=== PATIENT | female | born 1955 | race Caucasian/White ===

== ENCOUNTER 2024-01-13 03:44 | Inpatient (IN) | payer MEDICARE, OTHER, SELFPAY ==
[2024-01-12 16:31] VITALS: BP 151/87
[2024-01-12 17:21] LABS: COVID-19 Antigen Negative (Negative)
[2024-01-12 18:29] VITALS: BP 137/65
[2024-01-12 20:42] VITALS: BMI 49.3
[2024-01-12 20:49] VITALS: BP 149/77
[2024-01-12 21:22] LABS: % Basophils 0.5 % (0-2); % Eosinophils 1.4 % (0-6); % Immature Granulocytes 0.3 % (0-0.5); % Lymphocytes 15.7 % (20.5-51.1); % Monocytes 7.2 % (1.7-9.3); % Neutrophils 74.9 % (42.2-75.2); Absolute Basophils 0.1 10^3/uL (0-0.2); Absolute Eosinophils 0.2 10^3/uL (0-0.7); Absolute Immature Granulocytes 0.1 10^3/uL (0-0.05); Absolute Lymphocytes 2.3 10^3/uL (1.2-3.4); Absolute Monocytes 1.1 10^3/uL (0.1-0.6); Hemoglobin 12.6 g/dL (12.0-16.0); Mean Corp Hgb Conc. 34.1 g/dL (33.0-37.0); Mean Corpuscular Hgb 30.6 pg (27.0-31.0); Mean Corpuscular Volume 89.8 fL (81.0-99.0); Nucleated Red Blood Cells % 0 %; Platelet Count 342 10^3/uL (130-400); Red Blood Cell Count 4.12 10^6/uL (4.20-5.40); Red Cell Dist. Width 12.4 % (11.5-14.5); White Blood Cell Count 14.7 10^3/uL (4.8-10.8)
[2024-01-12 21:35] LABS: ALT (SGPT) 77 U/L (0-35); AST (SGOT) 63 U/L (14-36); Alkaline Phosphatase 123 U/L (38-126); Blood Urea Nitrogen 20 mg/dl (7-17); Calcium 9.7 mg/dl (8.4-10.2); Carbon Dioxide 28 mmol/L (22-30); Chloride 99 mmol/L (98-107); Estimated Creatinine Clearance 85 ml/min; Glucose 106 mg/dl (70-99); Potassium 4.1 mmol/L (3.5-5.1); Sodium 140 mmol/L (135-145); Total Bilirubin 0.7 mg/dl (0.2-1.3); eGFR > 60.00
[2024-01-12 21:36] LABS: Lipase 48 U/L (23-300)
[2024-01-12 21:49] LABS: Urine Albumin Trace (Neg - Trace); Urine Bilirubin 1+ (Negative); Urine Character Slightly Cloudy (Clear); Urine Color Amber; Urine Glucose Negative (Negative); Urine Ketone Trace (Negative); Urine Leukocyte 1+ (Negative); Urine Nitrite Positive (Negative); Urine Occult Blood 1+ (Negative); Urine Specific Gravity 1.015 (<1.030); Urine Urobilinogen Negative (Neg - 1+)
[2024-01-12 22:03] LABS: Urine Bacteria Many (Negative); Urine Red Blood Cell 0-2 /HPF (0-2); Urine White Cell 26-30 /HPF (0-5)
--- NOTE | 2024-01-12 22:31 | ED.GENMED ---
History of Present Illness
<Avtar Higginbotham, DO - Last Filed: 01/13/24 02:28>
General
Chief Complaint: Abdominal Pain
Time Seen by Provider: 01/12/24 22:08
<Nova Campa MD, Resident - Last Filed: 01/12/24 22:51>
General
Source: patient
Exam Limitations: none
Nursing documentation reviewed up to this point in time: agreed with
History of Present Illness
History of Present Illness:
Patient is a 68-year-old female with past medical history of GERD, hypertension, hypercholesterolemia, breast current (diagnosed 2017). Mentions she had an abdominal pain on Friday that lasted for an hour and went away by itself. Was pain-free
until Friday when she started to have a dull upper abdominal pain that has been constant since. The pain does not radiate, gets worse with bending and better with lying down. She reports a fever of 101.4 yesterday for which she treated with
Tylenol. Does not think pain is similar to GERD symptoms. Patient is not a alcohol drinker. Also mentions loss of appetite.
Denies nausea/vomiting. Denies urinary symptoms. Denies shortness of breath. Does not report change in bowel movements.
Past History
<Nova Campa MD, Resident - Last Filed: 01/12/24 22:51>
Past History
ED Past Medical History: Hypercholesterolemia and Other (Migraines, anxiety); Negative CAD, IDDM or NIDDM
ED Past Surgical History: None
Social History
Tobacco: Non-smoker
Alcohol: Occasional
Drug: None
Personal:
Living: with family
Family History
Family History: Hypertension and CAD
Review of Systems
<Nova Campa MD, Resident - Last Filed: 01/12/24 22:51>
Review of Systems
Allergies reviewed?: Yes
All Other Systems: ROS reviewed and negative except as documented in HPI and ROS
Phy Exam
<Nova Campa MD, Resident - Last Filed: 01/12/24 22:51>
General Physical Exam
General Presentation: mild distress
General Habitus: obese
General Mental: alert and usual mental status
General Hydration: other (Slightly dehydrated)
Cardiovascular Exam
Cardiovascular Exam: regular rate/rhythm, no edema, no gallop and no JVD
Pulmonary Exam
Pulmonary Exam: lungs clear, no respiratory distress, no crackles and no cough
Gastrointestinal Exam
Gastrointestinal Exam: normal bowel sounds, soft, no cva tenderness, tender (Mild epigastric tenderness) and other (No rebound, no guarding)
Neurological Exam
Neurological Exam: alert and oriented x3
Musculoskeletal Exam
Musculoskeletal Exam: full ROM and no edema
Skin Exam
Skin Exam: other (No jaundice)
Course
<Avtar Higginbotham, DO - Last Filed: 01/13/24 02:28>
Orders/Labs/Results
Orders:
Orders
01/12/24 16:35
Electrocardiogram (*1) Urgent
Reason for Study: Abdominal Pain
EKG- Treatment ONCE
01/12/24 16:46
COVID-19 Antigen Urgent
Source: Nasal Swab
Influenza A+B Rapid Molecular Urgent
GEOFF Source: Nasal Swab
Specimen Description:
01/12/24 20:55
Straight cath- Treatment ONCE
01/12/24 20:57
Urinalysis Reflex To Culture Urgent
Date Specimen was Collected: 01/12/24
Time Specimen was Collected: 20:55
Urine Microscopic Reflex Cult Urgent
Urine Culture Urgent
GEOFF Source: U
Specimen Description:
Date Specimen was Collected: 01/12/24
Time Specimen was Collected: 20:55
01/12/24 21:13
Complete Blood Count/With Diff Urgent
Comprehensive Metabolic Panel Urgent
Lipase Urgent
01/12/24 22:31
US Abdomen Complete/Upper Urgent
Comment:
Reason For Exam: upper abdominal pain, fever, mildly elevated LFT
01/13/24 00:07
Acetaminophen [Tylenol] 650 mg PO NOW STA
01/13/24 00:21
0.9% Sodium Chloride 1000 ml [Nss] 1,000 ml IV BOLUS
Piperacillin/Tazo 4.5 Gram [Zosyn] 4.5 gram in 100 ml IV NOW
01/13/24 Breakfast
NPO
Allow oral meds: No
Allow clear liquids: No
NPO with Ice Chips: Yes
Abnormal Lab Results
01/12/24 01/12/24
20:57 21:13
WBC 14.7 H 10^3/uL
(4.8-10.8)
RBC 4.12 L 10^6/uL
(4.20-5.40)
Abs Immat Gran (auto) 0.1 H 10^3/uL
(0-0.05)
Absolute Neuts (auto) 11.0 H 10^3/uL
(1.4-6.5)
Absolute Monos (auto) 1.1 H 10^3/uL
(0.1-0.6)
Lymphocytes % 15.7 L %
(20.5-51.1)
BUN 20 H mg/dl
(7-17)
Glucose 106 H mg/dl
(70-99)
AST 63 H U/L
(14-36)
ALT 77 H U/L
(0-35)
Urine Ketones Trace A
(Negative)
Ur Occult Blood Reflex 1+ A
(Negative)
Urine Nitrite (Reflex) Positive A
(Negative)
Urine Bilirubin 1+ A
(Negative)
Leukocyte Esterase Rfl 1+ A
(Negative)
Urine WBC (Reflex) 26-30 A /HPF
(0-5)
Urine Bacteria (Reflex) Many A
(Negative)
01/12/24 21:13
01/12/24 21:13
Vital Signs
Initial and Last Documented VS:
Initial Vital Signs
Temp Pulse Resp BP Pulse Ox
100.3 F 112 18 151/87 100
01/12/24 16:31 01/12/24 16:31 01/12/24 16:31 01/12/24 16:31 01/12/24 16:31
Last Documented Vital Signs
Temp Pulse Resp BP Pulse Ox
99.1 F 89 18 137/65 96
01/12/24 18:29 01/12/24 18:29 01/12/24 16:31 01/12/24 18:29 01/12/24 20:50
<Nova Campa MD, Resident - Last Filed: 01/12/24 22:51>
Orders/Labs/Results
Orders:
Orders
01/12/24 16:35
Electrocardiogram (*1) Urgent
Reason for Study: Abdominal Pain
EKG- Treatment ONCE
01/12/24 16:46
COVID-19 Antigen Urgent
Source: Nasal Swab
Influenza A+B Rapid Molecular Urgent
GEOFF Source: Nasal Swab
Specimen Description:
01/12/24 20:55
Straight cath- Treatment ONCE
01/12/24 20:57
Urinalysis Reflex To Culture Urgent
Date Specimen was Collected: 01/12/24
Time Specimen was Collected: 20:55
Urine Microscopic Reflex Cult Urgent
Urine Culture Urgent
GEOFF Source: U
Specimen Description:
Date Specimen was Collected: 01/12/24
Time Specimen was Collected: 20:55
01/12/24 21:13
Complete Blood Count/With Diff Urgent
Comprehensive Metabolic Panel Urgent
Lipase Urgent
01/12/24 22:31
US Abdomen Complete/Upper Urgent
Comment:
Reason For Exam: upper abdominal pain, fever, mildly elevated LFT
01/13/24 00:07
Acetaminophen [Tylenol] 650 mg PO NOW STA
01/13/24 00:21
0.9% Sodium Chloride 1000 ml [Nss] 1,000 ml IV BOLUS
Piperacillin/Tazo 4.5 Gram [Zosyn] 4.5 gram in 100 ml IV NOW
01/13/24 Breakfast
NPO
Allow oral meds: No
Allow clear liquids: No
NPO with Ice Chips: Yes
Abnormal Lab Results
01/12/24 01/12/24
20:57 21:13
WBC 14.7 H 10^3/uL
(4.8-10.8)
RBC 4.12 L 10^6/uL
(4.20-5.40)
Abs Immat Gran (auto) 0.1 H 10^3/uL
(0-0.05)
Absolute Neuts (auto) 11.0 H 10^3/uL
(1.4-6.5)
Absolute Monos (auto) 1.1 H 10^3/uL
(0.1-0.6)
Lymphocytes % 15.7 L %
(20.5-51.1)
BUN 20 H mg/dl
(7-17)
Glucose 106 H mg/dl
(70-99)
AST 63 H U/L
(14-36)
ALT 77 H U/L
(0-35)
Urine Ketones Trace A
(Negative)
Ur Occult Blood Reflex 1+ A
(Negative)
Urine Nitrite (Reflex) Positive A
(Negative)
Urine Bilirubin 1+ A
(Negative)
Leukocyte Esterase Rfl 1+ A
(Negative)
Urine WBC (Reflex) 26-30 A /HPF
(0-5)
Urine Bacteria (Reflex) Many A
(Negative)
01/12/24 21:13
01/12/24 21:13
Vital Signs
Initial and Last Documented VS:
Initial Vital Signs
Temp Pulse Resp BP Pulse Ox
100.3 F 112 18 151/87 100
01/12/24 16:31 01/12/24 16:31 01/12/24 16:31 01/12/24 16:31 01/12/24 16:31
Last Documented Vital Signs
Temp Pulse Resp BP Pulse Ox
99.1 F 89 18 137/65 96
01/12/24 18:29 01/12/24 18:29 01/12/24 16:31 01/12/24 18:29 01/12/24 20:50
<Avtar Higginbotham, DO - Last Filed: 01/13/24 02:28>
MDM/Problems Addressed
MDM/Problems Addressed:
68-year-old female with acute cholecystitis and UTI. Discussed with Dr. Lloyd, general surgeon, who will take the OR in a.m. Admit to hospitalist. IV Zosyn given.
Chronic conditions affecting care: HTN
<Nova Campa MD, Resident - Last Filed: 01/12/24 22:51>
MDM/Problems Addressed
Differential Diagnosis Includes:
Acute cholecystitis, Cholelithiasis, UTI, Acute cholangitis (less likely)
<Avtar Higginbotham DO - Last Filed: 01/13/24 02:28>
*Radiology
Radiology exam reviewed: radiology read reviewed (Ultrasound abdomen shows acute cholecystitis)
*Pulse Oximetry
Patient hypoxic: no
*EKG
Interpreted by ED Provider?: Yes
EKG Intrepretation Date: 01/13/24
EKG Intrepretation Time: 16:38
Interpretation: abnormal
Comparison EKG: no changes
Heart Rate: 107
Rate: tachycardiac
Rhythm: sinus tachycardia
[place]: normal axis
Interval: normal interval
QRS Pattern: normal QRS
Ischemia: no ischemia
*Geology Instructor Interpretation
Rate: tachycardiac
Interpretation: abnormal
Heart Rate: 105
Rhythm: sinus tachycardia
*Critical Care Note
Total Time (30-74mins, 75-104mins- exclusive of procedures): Not Applicable
<Nova Campa MD, Resident - Last Filed: 01/12/24 22:51>
*Critical Care Note
Total Time (30-74mins, 75-104mins- exclusive of procedures): 30
<Avtar Higginbotham, - Last Filed: 01/13/24 02:28>
Patient Management
Social determinants of health affecting care: Living situation
Discussion with other providers: Hospitalist and Business Intelligence Consultant (General surgeon)
Escalation/DeEscalation of care consider admission/obs:
admit indicated
ED Attending Note
<Avtar Higginbotham, - Last Filed: 01/13/24 02:28>
ED Attending Note
Patient seen and examined by attending physician: Yes
I performed a history and physical exam of patient and discussed management with resident, I reviewed resident's note and agree with documented findings and plan of care.: Yes
ED Attending Note:
I reviewed and agree with history and treatment plan by Nova Rondon. My exam revealed 61-year-old female with epigastric tenderness without rebound. Patient initially had temperature 100.3 in ED. Will evaluate with ultrasound.
<Nova Campa MD, Resident - Last Filed: 01/12/24 22:51>
-
Portions of this chart may have been created with voice recognition software.� Occasional wrong word or��sound alike� substitutions may have occurred due to the inherent limitations of voice recognition software.
Discharge Plan
Departure
Patient Disposition: Admit
Date of Disposition: 01/13/24
Time of Disposition: 00:23
Admit to: Med/Surg
Presentation/result/management discussed w/ accepting MD/DO: Hospitalist
Patient with high blood pressure during this ER visit?: Yes
Condition: Fair
Discharge Problem:
Acute cholecystitis, Urinary tract infection
Prescriptions:
No Action
cyanocobalamin (vitamin B-12) 1,000 MCG tablet
1,000 mcg PO DAILY
uwvqlkihfi-jlvajnxjirjka-opyx 1 TAB tablet
1 tab PO Q4HPRN PRN (Reason: GARCIA)
lorazepam 0.5 MG tablet
0.5 mg PO Q4HPRN PRN (Reason: anxiety)
Calcium
1 tab PO DAILY
Pravastatin
40 mg PO DAILY
Vitamin D
1 tab PO DAILY
lisinopril-hydrochlorothiazide 1 EACH tablet
1 ea PO DAILY
famotidine 20 MG tablet
20 mg PO DAILY
letrozole 2.5 MG tablet
2.5 mg PO DAILY
sertraline 50 MG tablet
50 mg PO DAILY
Referrals:
Vicenta Fermin MD [Family Provider] -
Interventions
Interventions:
*Risk Screen - Suicide Last Done: 01/12/24 16:31
*General Assessment Last Done: 01/12/24 16:31
*Neglect/Abuse Screening Last Done: 01/12/24 16:31
ED- Fall Risk Assessment Last Done: 01/12/24 20:50
*ED COVID-19 Vaccine History Last Done: 01/12/24 16:31
AR-Ixuswk-Rebwxpbsix Assessment Last Done: 01/12/24 20:50
Discharge Date and Time
Print Language: ECUADOREAN
[2024-01-13] VITALS (19 sets, daily range): BP systolic 120–161; BP diastolic 49–81
[2024-01-13] MEDS: TYLENOL 650 MG PO (00:11)
[2024-01-13] MEDS: ZOSYN 100 IV (01:21)
[2024-01-13] MEDS: NSS 1000 IV (01:22)
--- NOTE | 2024-01-13 04:13 | HPS.HSE ---
Family Physician
-
Family Physician: Vicenta Fermin
Chief Complaint
-
Epigastric abdominal pain. Fever
History of Present Illness
This is a 68-year-old female with past medical history significant for breast cancer status postlumpectomy and lymph node dissection several years ago, hyperlipidemia, hypertension who presents to the emergency department with abdominal pain that
started around 5 days ago.
Patient reports gradual onset of abdominal pain that started in the lower quadrant and brought gross to her epigastric region. No radiation. Pain worse with movement or trying to eat. She was able to tolerate the pain for a few days. However
today she started having a fever and worsening pain so she decided come to the emergency department.
In the ED he was febrile to 100.3, blood pressure 128/71 and oxygen saturation 90% on room air. She had leukocytosis to 14,000 with baseline hemoglobin and platelet counts were normal. Chemistries were unremarkable. LFTs are within normal limits.
Lipase was normal. Bilirubin was normal.
Abdominal ultrasound shows a gallstone impacted in the neck of the gallbladder with gallbladder distention, gallbladder wall thickening and edema with positive Vargas sign. There is a dilation of the common bile duct to 9 mm, no stones.
Medical History
Past Medical History
Past Medical History: Reports HTN and Hypercholesterolemia
Additional Past Medical History:
Breast cancer status postlumpectomy
Past Surgical History: Reports Tonsilectomy
Additional Past Surgical History:
Left lumpectomy and lymph node dissection
Social History
Tobacco: Non-smoker
Alcohol: Occasional
Drug: None
Personal: Single
Living: Alone
Employment: Retired
Family History
Family History: Not pertinent
Allergies / Home Medications
Allergies reflects when Allergies were last updated in [facility].
Home Medications with original date entered in [facility]
Allergy/Medication List:
Allergies
Allergy/AdvReac Type Severity Reaction Status Date / Time
diphenhydramine Allergy gets hyper Verified 01/12/24 16:35
[From Benadryl]
Home Medications
Calcium 1 tab PO DAILY 08/16/11
Pravastatin 40 mg PO DAILY 08/16/11
Vitamin D 1 tab PO DAILY 08/16/11
tfmbmizkhl-kgdtcnmgluaii-qlqjojih 50 mg-325 mg-40 mg tablet 1 tab PO Q4HPRN PRN GARCIA 08/16/11
cyanocobalamin (vitamin B-12) 1,000 mcg tablet 1,000 mcg PO DAILY 08/16/11
lorazepam 0.5 mg tablet 0.5 mg PO Q4HPRN PRN anxiety 08/16/11
famotidine 20 mg tablet 20 mg PO DAILY 07/16/21
letrozole 2.5 mg tablet 2.5 mg PO DAILY 07/16/21
lisinopril 20 mg-hydrochlorothiazide 12.5 mg tablet 1 ea PO DAILY 07/16/21
sertraline 50 mg tablet 50 mg PO DAILY 07/16/21
Review of Systems
-
Constitutional: Reports Fever
EENT: Reports No Symptoms
Respiratory: Reports No Symptoms
Cardiac: Reports No Symptoms
Abdomen/GI: Reports Abdominal Pain
: Reports No Symptoms
Musculoskeletal: Reports No Symptoms
Skin: Reports No Symptoms
Neurological: Reports No Symptoms
Endocrine: Reports No Symptoms
Hematologic/Lymphatic: Reports No Symptoms
Psych: Reports No Symptoms
Physical Exam
Vital Signs
Vital Signs
Temp Pulse Resp BP Pulse Ox
99.1 F 83 14 128/71 99
01/12/24 18:29 01/12/24 23:39 01/12/24 23:39 01/13/24 01:00 01/12/24 23:39
Physical Exam
General: Well Developed and Comfortable
HEENT: NormoCephalic, Anicteric, Moist mucous membranes and Atraumatic
Respiratory: Clear
Cardiac: S1/S2 and Regular Rhythm
Breast: Deferred by me
GI: Soft, Non Distended and Tender
Genito-urinary: Deferred by me
Musculoskeletal: No Clubbing, No Cyanosis and No Edema
Skin: Warm
Neuro: AO x 3
Hematologic/Lymphatic: No Lymphadenopathy
Psych: Calm
Laboratory Results
-
Laboratory Results
Total Bilirubin 0.7 mg/dl (0.2-1.3) 01/12/24 21:13
AST 63 U/L (14-36) H 01/12/24 21:13
ALT 77 U/L (0-35) H 01/12/24 21:13
Alkaline Phosphatase 123 U/L (38-126) 01/12/24 21:13
Lipase 48 U/L (23-300) 01/12/24 21:13
Data Reviewed
-
Ultrasound: Report Reviewed by me
Lab Data: Labs Reviewed by me
Old Records: Reviewed
Impression/Plan
-
IMPRESSION:
68 y.o female wit HTN, HLD, anxiety, here with acute cholecystisis. There is some GB dilation but no stones and normal lfts and lipase. There is no evidence of cholelithiasi.
PLAN:
1. Acute cholecysitis w/o cholangitis.
- admit to med/surg
- zosyn
- NPO, maintenance fluids
- surgery consulted and aware for OR in am
- holding am antihypertensives
- continue sertraline and prn lorazepam
- other meds to be stared after surgery
U/A is positive with squamos cells suggestive of contamination. No acute urinary symptoms described. On zosyn for now. No indication for UTI treatment specifically
DVT PPX - lovenox sq
Code Status - Full
[2024-01-13 06:39] LABS: Hematocrit 36.3 % (37.0-47.0); Hemoglobin 12.1 g/dL (12.0-16.0); Mean Corp Hgb Conc. 33.3 g/dL (33.0-37.0); Mean Corpuscular Hgb 30.6 pg (27.0-31.0); Mean Corpuscular Volume 91.7 fL (81.0-99.0); Mean Platelet Volume 10.3 fL (7.4-10.4); Platelet Count 336 10^3/uL (130-400); Red Blood Cell Count 3.96 10^6/uL (4.20-5.40); Red Cell Dist. Width 12.4 % (11.5-14.5)
[2024-01-13 06:58] LABS: INR 1.09; PT 13.9 Sec (11.4-14.6)
[2024-01-13 07:01] LABS: Blood Urea Nitrogen 17 mg/dl (7-17); Calcium 9.4 mg/dl (8.4-10.2); Carbon Dioxide 27 mmol/L (22-30); Chloride 100 mmol/L (98-107); Estimated Creatinine Clearance 85 ml/min; Glucose 105 mg/dl (70-99); Potassium 3.6 mmol/L (3.5-5.1); Sodium 142 mmol/L (135-145); eGFR > 60.00
[2024-01-13] MEDS: LR 1000 IV (07:06)
--- NOTE | 2024-01-13 07:39 | W.PN.HOSP.TC ---
Today's Communication/Plan
-
NPO, IVF
once toradol for headache, protonix GI prophylaxis
Sugery eval
cont abx
pain control
Assessment / Plan
Assessment / Plan
Physical Exam
General: Well Developed and Comfortable morbidly obese
HEENT: NormoCephalic, Anicteric, Moist mucous membranes and Atraumatic
Respiratory: Clear
Cardiac: S1/S2 and Regular Rhythm
GI: Soft, Non Distended and RUQ Tenderness Vargas Sign Pos
Musculoskeletal: No Clubbing, No Cyanosis and No Edema
Skin: Warm
Neuro: AO x 3
Psych: Calm
68 y.o female wit HTN, HLD, anxiety, here with acute cholecystitis.
PLAN:
Acute cholecysitis
-mild transaminits, no significant bili elevation noted
-Abd US official results pending, preliminary reports suggestive cholecystitis
- zosyn
- NPO, maintenance fluids
- surgery consulted
- holding home antihypertensives given soft pressures
- continue sertraline and prn lorazepam
- other meds to be stared after surgery
Headache
-once Toradol
-Tylenol prn
U/A is positive with squamous cells suggestive of contamination. No acute urinary symptoms described. On zosyn for now. No indication for UTI treatment specifically
DVT PPX - lovenox sq
Gi ppx Protonix
Code Status - Full
discussed with patient and patient's Brother Patrick
I spent a total of 50 minutes with the patient or on the floor. More than 50% of this time involved counseling and coordination of care.
Anticipated Discharge: 24 - 48 hours
Subjective/Interval History
-
Date of Service: January 13, 2024
No acute distress resting comfortably in bed. Reports right upper quadrant abd pain tenderness persists but tolerable. Reports headache
Objective Data
-
Labs:
Laboratory Results
01/12/24 01/13/24 01/13/24
21:13 06:05 07:09
WBC 14.7 H 13.0 H
Hgb 12.6 12.1
Hct 37.0 36.3 L
Plt Count 342 336
PT 13.9
INR 1.09
Sodium 140 142
Potassium 4.1 3.6
Chloride 99 100
Carbon Dioxide 28 27
BUN 20 H 17
Creatinine 0.8 0.8
Glucose 106 H 105 H
Calcium 9.7 9.4
Total Bilirubin 0.7 Pending
AST 63 H Pending
ALT 77 H Pending
Alkaline Phosphatase 123 Pending
Vital Signs:
Vital Signs
Temp Pulse Resp BP Pulse Ox
99.1 F 84 17 123/78 96
01/12/24 18:29 01/13/24 06:00 01/13/24 06:00 01/13/24 05:00 01/13/24 05:45
[2024-01-13] MEDS: ZOSYN 50 IV ×2 (08:06→20:42)
[2024-01-13] MEDS: ZOLOFT PO (08:18)
[2024-01-13 08:30] LABS: ALT (SGPT) 70 U/L (0-35); AST (SGOT) 55 U/L (14-36); Albumin 3.9 g/dl (3.5-5.0); Alkaline Phosphatase 124 U/L (38-126); Direct Bilirubin 0.3 mg/dl (0.0-0.4); Total Bilirubin 0.8 mg/dl (0.2-1.3); Total Protein 6.8 g/dl (6.3-8.2)
[2024-01-13] MEDS: PROTONIX IV 40 MG IV (08:42)
[2024-01-13] MEDS: NSS (PRESERVATIVE FREE) 10 ML IV (08:42)
[2024-01-13] MEDS: DILAUDID 0.5 MG IV ×3 (08:44→21:12)
--- NOTE | 2024-01-13 09:42 | CON.GS ---
Medical History
-
Chief Complaint: RUQ abdominal pain
History of Present Illness:
Patient is a 68 yo M with a PMH of morbid obesity, HTN, HLD, and breast cancer s/p lumpectomy with SLND who presents with approximately 5 days of RUQ abdominal pain. Ms. Piper states that her pain began on as acute onset sharp RUQ
abdominal pain. Her symptoms improved and resolved throughout the day, but then recurred on Friday (01/09). Since that time she has had persistent upper abdominal and RUQ abdominal pain. She continues to have abdominal pain in the ED. No
nausea or vomiting. Associated fevers. She denies any jaundice or pale stools, she does note some darker urine. She reports a prior attack years ago. No family history of cholecystectomy.
Past Medical History
Past Medical History: Cancer (Breast), HTN and Hypercholesterolemia
Past Surgical History: Other (Lumpectomy with SLND)
Social History
Tobacco: Non-Smoker
Alcohol: Occasional
Drug: None
Family History
Family History: Reviewed & Not Pertinent
Allergies / Home Medications
Allergy/AdvReac Type Severity Reaction Status Date / Time
diphenhydramine Allergy gets hyper Verified 01/12/24 16:35
[From Benadryl]
�Medication �Instructions �Recorded �Confirmed �Type
pravastatin 40 mg tablet 40 mg PO DAILY 08/16/11 01/13/24 History
letrozole 2.5 mg tablet 2.5 mg PO DAILY 07/16/21 01/13/24 History
sertraline 50 mg tablet 50 mg PO DAILY 07/16/21 01/13/24 History
vwvnfuq-rwoiwfqmsx-DKJ-caffeine 30 1 cap PO TIDPRN PRN migraines 01/13/24 01/13/24 History
mg-50 mg-325 mg-40 mg capsule
(Ascomp with Codeine)
lisinopril 20 1 tab PO DAILY 01/13/24 01/13/24 History
mg-hydrochlorothiazide 12.5 mg
tablet
Review of Systems
-
A 10 point review of systems was completed, and was negative except as per HPI.
Physical Exam
Vital Signs
Temp Pulse Resp BP Pulse Ox
99.1 F 84 17 123/78 96
01/12/24 18:29 01/13/24 06:00 01/13/24 06:00 01/13/24 05:00 01/13/24 05:45
01/12/24 01/13/24 01/14/24
06:59 06:59 06:59
Actual Weight 122.1 kg
Body Mass Index (BMI) 49.3
Lab Results
01/13/24 06:05
01/13/24 06:05
WBC 13.0 10^3/uL (4.8-10.8) H 01/13/24 06:05
Hgb 12.1 g/dL (12.0-16.0) 01/13/24 06:05
Hct 36.3 % (37.0-47.0) L 01/13/24 06:05
Plt Count 336 10^3/uL (130-400) 01/13/24 06:05
Abs Immat Gran (auto) 0.1 10^3/uL (0-0.05) H 01/12/24 21:13
Neutrophils % 74.9 % (42.2-75.2) 01/12/24 21:13
Physical Exam
General: Well Developed, Well Nourished and No Apparent Distress
HEENT: Normocephalic and Anicteric
Respiratory: Non Labored Respirations
GI: Soft, Tender (RUQ and epigastrium), Obese (Exam limited by obesity) and Other (No diffuse peritonitis)
Musculoskeletal: No Edema
Skin: Warm and Dry
Neuro: Nonfocal/Grossly Intact
Data Reviewed
-
Ultrasound: Image Personally Visualized and interpreted
Labs: Labs Reviewed by me
Assessment / Plan
-
Patient is a 68 yo F p/w acute cholecystitis
Financial history and pathophysiology of biliary and stone disease was discussed. Anatomy was briefly reviewed. Workup thus far including labs and imaging were reviewed. Options for management including medical management alone with antibiotics
versus percutaneous cholecystostomy tube versus cholecystectomy were considered and discussed. The pros and cons of all approaches was discussed. We discussed that she is at slightly increased risk for operative complications given her obesity and
delayed presentation.
Plan for a laparoscopic cholecystectomy with possible cholangiogram. The procedure itself, as well as the risks, benefits, and alternatives was discussed. Specifically, we discussed the risks of bleeding, infection, injury to surrounding
structures (bowel, bile ducts), CBD injury, need for open procedure. Typical postprocedure recovery including 2 weeks no heavy lifting or strenuous activities and the 10 to 20% risk of fluctuation in GI function were discussed. All questions
answered. Consent signed.
-- Laparoscopic cholecystectomy with possible cholangiogram
-- NPO, IVF
-- Antibiotics: Zosyn
-- Pain control: Tylenol and IV Dilaudid as needed
--- NOTE | 2024-01-13 09:52 | W.SUR.PREOP ---
Pre-Operative Surgical Note
-
I have examined this patient prior to the performance of the scheduled procedure.
The patient's condition is unchanged from the time of the current History and
Physical and the patient is able to undergo the scheduled procedure.
[2024-01-13] MEDS: ZOFRAN 4 MG IV (12:50)
--- NOTE | 2024-01-13 16:48 | W.IMMPOSTOP ---
Surgical Immed Post Op Note
-
Primary Surgeon: Sin
Assisting Surgeon: None
Pre-op Diagnosis: Acute cholecystitis
Post-op Diagnosis: Acute cholecystitis
Procedure Performed: Laparoscopic cholecystectomy with IOC
Anesthesia Type: General
Specimen / Cultures:
1. Gallbladder
Estimated Blood Loss: 11 cc
Complications: None
Operative Findings:
1. Acutely inflamed and edematous GB, severe fatty liver disease and intra-hepatic GB
2. Critical view of safety
3. IOC with limited visualization of distal CBD secondary to spine and despite JONATHAN, emptying into duodenum, proximal radicals and cystic duct identified
4. Artery taken with clips and duct with clips and Endoloop
5. 19 Fr Abdiaziz drain into operative field
[2024-01-13] MEDS: ZOSYN IV (17:48)
--- NOTE | 2024-01-13 18:10 | SUR.PHASEI ---
IV in r arm not running, possible infiltrate as area puffy. Yaima Felix paged for IV start. waiting reply. Jose Reyes RN BSN.
[2024-01-13] MEDS: NORMOSOL-R/PLASMALYTE-A 1000 IV (18:41)
[2024-01-13] MEDS: LR IV (20:25)
[2024-01-13] MEDS: LOVENOX 40 MG SC (20:43)
[2024-01-13] MEDS: ZESTRIL 20 MG PO (22:48)
--- NOTE | 2024-01-13 22:50 | PTCARENOTE ---
[facility] a bed on 2L of O2. Pt had 4 lap sites and a ADRI drain in the RLQ putting out serosanguineous drainage. Full head to toe completed. Admission questions completed. Bed locked and in lowest position. Pt oriented
to room and call blevins. Care ongoing.
[2024-01-14] VITALS (8 sets, daily range): BP systolic 117–168; BP diastolic 45–73; PULSE 92
[2024-01-14] MEDS: ZOSYN 50 IV ×4 (01:00→20:06)
--- NOTE | 2024-01-14 04:36 | DOWNTIME ---
There was a [employer] Client Curriculum Writer Downtime on 01/14/2024 from 0100 to 01/14/2024 at 0355. Downtime documentation of patient's care, including medication administrations, has been reconciled in the electronic record per guidelines. Refer to the
patient's paper chart under the miscellaneous tab to see printed paper medication records and downtime forms.
[2024-01-14] MEDS: NORMOSOL-R/PLASMALYTE-A 1000 IV (05:01)
[2024-01-14] MEDS: ROXICODONE 5 MG PO ×2 (05:05→20:37)
[2024-01-14] MEDS: TYLENOL 650 MG PO (05:31)
[2024-01-14] MEDS: LR IV (07:21)
--- NOTE | 2024-01-14 07:25 | W.PN.HOSP.TC ---
Today's Communication/Plan
-
Pain control Diet abx as per surgery
PT/OT appreciated home health, VN case mgmt consult placed
home antihypertensives resumed with holding parameters
Patient here with primary surgical issue, otherwise relatively stable improving.
Per discussion with surgery, will transfer to surgical service and Hospitalist will sign off. Please consult as needed.
Assessment / Plan
Assessment / Plan
Physical Exam
General: Well Developed and Comfortable morbidly obese
HEENT: NormoCephalic, Anicteric, Moist mucous membranes and Atraumatic
Respiratory: Clear
Cardiac: S1/S2 and Regular Rhythm
GI: Soft, Non Distended and RUQ Tenderness Vargas Sign Pos, Drain present
Musculoskeletal: No Clubbing, No Cyanosis and No Edema
Skin: Warm
Neuro: AO x 3
Psych: Calm
68 y.o female Morbid Obesity remote history breast cancer, HTN, HLD, anxiety, here with acute cholecystitis.
PLAN:
Acute cholecysitis s/p cholecystectomy drain placed POD1
-mild transaminits, no significant bili elevation noted
-Abd US appreciated 2.4 cm gallstone GB neck, signs suggestive Acute Cholecystitis, dilation common bile duct 9 mm
- post-operative zosyn as per surgery
- Low Fat diet
- surgery consult appreciated
-pain control
HTN
home antihypertensives initially held d/t to soft pressures
since resumed home lisinopril-HCTz with holding parameters
Anxiety
continue home sertraline and prn lorazepam
Hx Breast Ca
Home Letrozole initially held on admission since resumed
Headache
-agree Fioricet Toradol prn as per surgery
PT/OT appreciated home services
DVT PPX - lovenox sq
Gi ppx Protonix
Code Status - Full
discussed with patient and Surgery
I spent a total of 40 minutes with the patient or on the floor. More than 50% of this time involved counseling and coordination of care.
Anticipated Discharge: Within 24 hours
Subjective/Interval History
-
Date of Service: January 14, 2024
Seen and examined at bedside in no acute distress. Reports headache and pain at incision/drain site.
Objective Data
-
Labs:
Laboratory Results
01/14/24
06:00
WBC Pending
Hgb Pending
Hct Pending
Plt Count Pending
Sodium Pending
Potassium Pending
Chloride Pending
Carbon Dioxide Pending
BUN Pending
Creatinine Pending
Glucose Pending
Calcium Pending
Total Bilirubin Pending
AST Pending
ALT Pending
Alkaline Phosphatase Pending
Vital Signs:
Vital Signs
Temp Pulse Resp BP Pulse Ox
97.5 F 91 18 139/65 94
01/14/24 03:20 01/14/24 03:20 01/14/24 03:20 01/14/24 03:20 01/14/24 03:20
I&O
01/13/24 01/14/24 01/15/24
06:59 06:59 06:59
Intake Total 2397 / 2397
Output Total 30 / 30
Balance 2367 / 2367
[2024-01-14] MEDS: ZOLOFT 50 MG PO (07:51)
[2024-01-14] MEDS: NSS (PRESERVATIVE FREE) 10 ML IV (07:51)
[2024-01-14] MEDS: LOVENOX 40 MG SC (07:51)
[2024-01-14] MEDS: PROTONIX IV 40 MG IV (07:51)
[2024-01-14 08:05] LABS: Hematocrit 34.6 % (37.0-47.0); Hemoglobin 11.6 g/dL (12.0-16.0); Mean Corp Hgb Conc. 33.5 g/dL (33.0-37.0); Mean Corpuscular Hgb 31.3 pg (27.0-31.0); Mean Corpuscular Volume 93.3 fL (81.0-99.0); Mean Platelet Volume 10.1 fL (7.4-10.4); Platelet Count 360 10^3/uL (130-400); Red Blood Cell Count 3.71 10^6/uL (4.20-5.40); Red Cell Dist. Width 12.3 % (11.5-14.5); White Blood Cell Count 16.6 10^3/uL (4.8-10.8)
[2024-01-14 08:17] LABS: ALT (SGPT) 149 U/L (0-35); AST (SGOT) 173 U/L (14-36); Albumin 3.5 g/dl (3.5-5.0); Alkaline Phosphatase 178 U/L (38-126); Blood Urea Nitrogen 19 mg/dl (7-17); Calcium 8.9 mg/dl (8.4-10.2); Carbon Dioxide 27 mmol/L (22-30); Chloride 101 mmol/L (98-107); Estimated Creatinine Clearance 76 ml/min; Glucose 102 mg/dl (70-99); Magnesium 2.2 mg/dl (1.6-2.3); Phosphorus 4.7 mg/dl (2.5-4.5); Potassium 4.2 mmol/L (3.5-5.1); Sodium 141 mmol/L (135-145); Total Bilirubin 0.4 mg/dl (0.2-1.3); Total Protein 6.4 g/dl (6.3-8.2); eGFR > 60.00
--- NOTE | 2024-01-14 10:14 | CM ---
Reviewed the chart notes and spoke with the patient at the bedside. The patient resides alone in a one story home with one step to enter. The patient report no VN or SNF in the past, but has had [facility] in the past after lumpectomy for
drain management. Patient currently has a Abdiaziz drain. The patient confirmed her pharmacy of choice is the [facility] continues to be available to patient/family and is monitoring medical plan for needs at discharge.
Plan: Discharge plans will depend on the patient's progress. If drain remains will need VN.
--- NOTE | 2024-01-14 11:35 | W.PN.GS2 ---
Addendum entered and electronically signed by Ravi Vogt MD 01/15/24 09:06:
Labs with downtrending LFTs and normal bilirubin. Plan for DC today.
Original Note:
Today's Communication / Plan
-
-- LFD
-- HLIV
-- Abx: 24 hours post-op of Zosyn is sufficient from surgery stendpoint
-- Home migraine medication ordered will need to monitor with Toradol
-- Tentative plan for DC tomorrow, ADRI to be removed prior to DC
Assessment / Plan
-
Patient is a 68 yo F POD#1 s/p laparoscopic cholecystectomy with IOC
Recovering well overall. No major postoperative concerns.
-- LFD
-- HLIV
-- Pain control: Tylenol, Toradol, Oxycodone
-- Abx: 24 hours post-op of Zosyn is sufficient from surgery stendpoint
-- Home migraine medication ordered will need to monitor with Toradol
-- Home BP and other meds per Hospitalist
-- DVT: Lovenox
-- GI: Protonix
-- Tentative plan for DC tomorrow, ADRI to be removed prior to DC
Subjective Data
-
Date of Service: January 14, 2024
Reports abdominal soreness with movement, overall controlled. Feels slightly unsteady on feet, but denies any dizziness or lightheadedness. Continues to have a slight migraine. No nausea or vomiting. Voiding. Afebrile.
Objective Data
-
Intake and Output
01/13/24 01/14/24 01/15/24
06:59 06:59 06:59
Intake Total 2397 / 2397
Output Total 30 / 30
Balance 2367 / 2367
Intake:
Oral fluids 972 / 972
IV fluids (Total) 1325 / 1325
Lr 125 / 125
IV piggybacks 100 / 100
Output:
Drain Output (Total) 30
Right Lower Abdomen
Other:
Number of approximated LARGE 2
amounts of urine
Vital Signs
Temp Pulse Resp BP Pulse Ox
97.9 F 83 16 120/45 95
01/14/24 07:45 01/14/24 07:45 01/14/24 07:45 01/14/24 07:45 01/14/24 07:45
Lab Results
01/14/24 07:27
01/14/24 07:27
Calcium 8.9 mg/dl (8.4-10.2) 01/14/24 07:27
Phosphorus 4.7 mg/dl (2.5-4.5) H 01/14/24 07:27
Magnesium 2.2 mg/dl (1.6-2.3) 01/14/24 07:27
Total Bilirubin 0.4 mg/dl (0.2-1.3) 01/14/24 07:27
Direct Bilirubin 0.3 mg/dl (0.0-0.4) 01/13/24 08:05
AST 173 U/L (14-36) H 01/14/24 07:27
ALT 149 U/L (0-35) H 01/14/24 07:27
Alkaline Phosphatase 178 U/L (38-126) H 01/14/24 07:27
Total Protein 6.4 g/dl (6.3-8.2) 01/14/24 07:27
Albumin 3.5 g/dl (3.5-5.0) 01/14/24 07:27
Physical Exam
-
Gen: NAD
Abd: soft, NT/ND, non-peritoneal, incisions c/d/i - no erythema, ecchymosis, or drainage, ADRI serosanguineous
[2024-01-14] MEDS: FIORICET 1 TAB PO (13:10)
[2024-01-15] MEDS: TYLENOL 650 MG PO ×2 (04:01→10:18)
[2024-01-15] MEDS: NSS (PRESERVATIVE FREE) 10 ML IV (07:43)
[2024-01-15] MEDS: PROTONIX IV 40 MG IV (07:43)
[2024-01-15] MEDS: FEMARA 2.5 MG PO (07:44)
[2024-01-15] MEDS: ZOLOFT 50 MG PO (07:44)
[2024-01-15 07:45] VITALS: BP 142/77
[2024-01-15] MEDS: ORETIC 12.5 MG PO (07:45)
[2024-01-15] MEDS: ZESTRIL 20 MG PO (07:45)
--- NOTE | 2024-01-15 08:32 | W.PN.GS2 ---
Today's Communication / Plan
-
-- ADRI removed
-- Tentative plan for DC today pending labs
Assessment / Plan
-
Patient is a 68 yo F POD#2 s/p laparoscopic cholecystectomy with IOC
Recovering well overall. No major postoperative concerns.
-- LFD
-- HLIV
-- Pain control: Tylenol, Toradol, Oxycodone
-- Abx: none further needed
-- Home migraine medication per our formulary ordered
-- Home meds
-- DVT: Lovenox
-- GI: Protonix
-- ADRI removed
-- Tentative plan for DC today pending labs
Subjective Data
-
Date of Service: January 15, 2024
Feels much improved compared to yesterday. Pain well-controlled. No nausea or vomiting. Afebrile.
Objective Data
-
Intake and Output
01/14/24 01/15/24 01/16/24
06:59 06:59 06:59
Intake Total 2397 / 2397 1110 / 1110
Output Total 30 / 30 80 / 80
Balance 2367 / 2367 1030 / 1030
Intake:
Oral fluids 972 / 972 960 / 960
IV fluids (Total) 1325 / 1325
Lr 125 / 125
IV piggybacks 100 / 100 150 / 150
Output:
Drain Output (Total) 30 / 30 80 / 80
Right Lower Abdomen 30 / 30 80 / 80
Other:
Number of approximated MODERATE 3
amounts of urine
Number of approximated LARGE 2
amounts of urine
Vital Signs
Temp Pulse Resp BP Pulse Ox
98.2 F 93 16 142/77 95
01/15/24 07:45 01/15/24 07:45 01/15/24 07:45 01/15/24 07:45 01/15/24 07:45
Lab Results
01/14/24 07:27
Calcium 8.9 mg/dl (8.4-10.2) 01/14/24 07:27
Phosphorus 4.7 mg/dl (2.5-4.5) H 01/14/24 07:27
Magnesium 2.2 mg/dl (1.6-2.3) 01/14/24 07:27
Total Bilirubin 0.4 mg/dl (0.2-1.3) 01/14/24 07:27
Direct Bilirubin 0.3 mg/dl (0.0-0.4) 01/13/24 08:05
AST 173 U/L (14-36) H 01/14/24 07:27
ALT 149 U/L (0-35) H 01/14/24 07:27
Alkaline Phosphatase 178 U/L (38-126) H 01/14/24 07:27
Total Protein 6.4 g/dl (6.3-8.2) 01/14/24 07:27
Albumin 3.5 g/dl (3.5-5.0) 01/14/24 07:27
Physical Exam
-
Gen: NAD
Abd: soft, mild tenderness, ND/obese, non-peritoneal, incisions c/d/i - no erythema, ecchymosis or drainage, ADRI serosang, non-bilious
[2024-01-15 08:43] LABS: ALT (SGPT) 115 U/L (0-35); AST (SGOT) 104 U/L (14-36); Albumin 3.7 g/dl (3.5-5.0); Alkaline Phosphatase 179 U/L (38-126); Blood Urea Nitrogen 14 mg/dl (7-17); Calcium 9.3 mg/dl (8.4-10.2); Carbon Dioxide 26 mmol/L (22-30); Chloride 101 mmol/L (98-107); Estimated Creatinine Clearance 85 ml/min; Glucose 102 mg/dl (70-99); Potassium 3.8 mmol/L (3.5-5.1); Sodium 142 mmol/L (135-145); Total Bilirubin 0.3 mg/dl (0.2-1.3); Total Protein 6.7 g/dl (6.3-8.2); eGFR > 60.00
--- NOTE | 2024-01-15 09:00 | W.DS.TRANS ---
DC Summary - Mechanic Assistant
-
Discharge Instructions:
Discharge Diagnosis/Procedures Laparoscopic cholecystectomy with IOC
Diet Low Fat,Regular
Additional Diets If issues with bloating or crampy abdominal pain
follow a low-fat diet
Activity No strenuous activity
Additional Activity No heavy lifting (>20 lbs) or strenuous
activities for 2 weeks postoperatively
Driving Restrictions No driving if too sore or taking narcotics
Bathing Restrictions OK to Shower
Wound Care Keep incisions clean and dry. Glue will flake
off in 2 to 3 weeks. Stitches will dissolve.
Use ice to the abdomen to reduce any bruising or
swelling. Cover old drain site with dry gauze
as needed for any drainage.
Instructions:
Stand-Alone Forms:
Changes to Home Medications: Yes
Discharge Medications:
DC Medications w/original date entered in [facility]
pravastatin 40 mg tablet 40 mg PO DAILY 08/16/11
letrozole 2.5 mg tablet 2.5 mg PO DAILY 07/16/21
sertraline 50 mg tablet 50 mg PO DAILY 07/16/21
xmhsjwc-bcmtbjfwdd-NCP-caffeine 30 mg-50 mg-325 mg-40 mg capsule (Ascomp with Codeine) 1 cap PO TIDPRN PRN migraines 01/13/24
lisinopril 20 mg-hydrochlorothiazide 12.5 mg tablet 1 tab PO DAILY 01/13/24
acetaminophen 325 mg tablet 650 mg (2 x 325 mg) PO Q4HPRN PRN mild pain #1 tab 01/14/24
oxycodone 5 mg tablet 5 mg PO Q4HPRN PRN breakthrough/severe pain #10 tabs 01/14/24
Home Medication Changes
Pending Results: No
[2024-01-15] MEDS: PRAVACHOL 40 MG PO (09:06)
--- NOTE | 2024-01-15 09:53 | CM ---
Reviewed the chart notes and spoke with the patient at the bedside. IMM reviewed. The patient anticipates being discharged to home today. Patient's brother will provide transportation. Patient's drain has been removed, so no VN needs. CM
continues to be available to patient/family and is monitoring medical plan for needs at discharge.
Plan: Discharge to home today.
[2024-01-15 10:45] VITALS: BP 132/82; PULSE 78
[2024-01-15 11:42] VITALS: BP 132/76
== END 2024-01-15 11:45 | disposition home or self-care (01) | DRG 418 ==
LOC: 2 SOUTH 03:44
PROVIDERS: Emergency Medicine; Internal Medicine; Physician Assistant; ADMITTING PHYSICIAN Internal Medicine; ATTENDING PHYSICIAN Surgery; EMERGENCY PHYSICIAN Emergency Medicine; FAMILY PHYSICIAN Family Medicine
PROC: 0FT44ZZ Resection of Gallbladder, Percutaneous Endoscopic Approach (ICD-10-PCS; 2024-01-14)
PROC: BF532Z0 Other Imaging of Gallbladder and Bile Ducts using Fluorescing Agent, Intraoperative (ICD-10-PCS; 2024-01-14)
DX: K80.00 Calculus of gallbladder with acute cholecystitis without obstruction (principal); Z68.42 Body mass index [BMI] 45.0-49.9, adult; Z11.52 Encounter for screening for COVID-19; E66.01 Morbid (severe) obesity due to excess calories
CPT/HCPCS: 88304; 74300; 76000; 76700; 80048; 80053; 80076; 81003; 81015; 83690; 83735; 84100; 85025; 85027; 85610; 86850; 86900; 86901; 87077; 87086; 87186; 87502; 87811; 93005; 96365; 97162; 97166; 99291